=== PATIENT | female | born 1995 | race Caucasian/White ===

== ENCOUNTER 2017-12-31 10:03 | Emergency (ER) | payer MEDICAID, SELFPAY ==
[2017-12-31 10:04] VITALS: BP 129/77; PULSE 66; RESP 18; O2SAT 98; BMI 28.3; BMI 62.4
--- NOTE | 2017-12-31 10:06 | XR_ITS ---
XR chest 2V HISTORY: ITS.REASON: CHEST PAIN ORDERING PHYSICIAN: Mohan Hughes MD PATIENT AGE: 22 years COMPARISON: 06/20/2017 FINDINGS: The cardiomediastinal silhouette and pulmonary vascularity are within normal limits. The lungs are clear without infiltrates, suspicious nodules, or pleural effusions. No acute bony abnormalities. IMPRESSION: Negative chest. Previously noted cardiomegaly no longer apparent
--- NOTE | 2017-12-31 10:06 | CA_ITS ---
PROCEDURE: 2-D M-mode and color Doppler study INDICATIONS FOR THE TEST: Chest painx COPD Heart Murmur Tobacco Smoking Palpitations Fatigue Syncope Edema Hypertension Diabetes Mellitus Rheumatic Fever SOBxDOE Obesity Hyperlipidemia Family History HD Additional History Lupus, pericardial effusion Mild mitral valve prolapse of anterior leaflet, insignificant pericardial effusion PATIENT INFORMATION HEIGHT: 5'5'' WEIGHT: 170 GENDER: Female B/P: 129/77 2-D/M-MODE INTERPRETATION: 2-D MEASUREMENTS OBSERVED VALUES IN CMS Right Ventricular Dimension (RVDd) 2.7 Interventricular Septum (Thickness)(IVsd) 0.9 Left Ventricular Internal Dimensions(LVIDd) 4.8 Left Ventricular Posterior Wall (Thickness)(LVPWd) 0.9 Aortic Root 2.7 Aortic Cusp Separation 2.1 Left Atrial Dimensions (LAD) 3.3 2D 1. Left atrium is normal size, left ventricle is normal size, there is no concentric left ventricular hypertrophy, visually estimated ejection fraction 55% with no obvious regional wall motion abnormality. 2. The right atrium and right ventricle are normal size and contractility. 3. The aortic valve is structurally normal. 4. The mitral valve leaflets are mildly myxomatous, there is mild prolapse of the posterior mitral leaflet. 5. The tricuspid valve is structurally normal. Pulmonic valve is poorly visualized 6. Trivial pericardial effusion noted. DOPPLER INTERROGATION: Doppler interrogation of the aortic, mitral and tricuspid valvular presence of moderate mitral and mild tricuspid regurgitation, tricuspid and jet velocity insufficient for calculation of the right ventricular systolic pressure, diastolic parameters are within normal range. CONCLUSION: 1. Normal left ventricular size, preserved left ventricular systolic function, visually estimated ejection fraction 55% with no obvious regional wall motion abnormality, diastolic parameters are within normal range. 2. Abnormal mitral valve as described above associated moderate mitral regurgitation 3. Mild tricuspid regurgitation 4. No significant pericardial effusion noted.
[2017-12-31 10:15] LABS: Basophils % 0.2 % (0.1-2.0); Eosinophils # 0.1 K/mm3 (0.0-0.4); Eosinophils % 1.9 % (0.1-12.0); Hematocrit 35.1 % (37.0-47.0); Hemoglobin 11.4 g/dL (12.2-16.2); Lymphocytes # 1.2 K/mm3 (0.7-4.5); Lymphocytes % 19.7 K/mm3 (10-50); Mean Corpuscular HGB Conc 32.6 g/dL (31.8-35.4); Mean Corpuscular Hemoglobin 26.4 pg (27.0-31.2); Mean Corpuscular Volume 81.2 fl (81-99); Mean Platelet Volume 8.5 fl (7.4-10.4); Monocytes # 0.4 K/mm3 (0.1-1.0); Monocytes % 6.3 % (1.7-9.3); Neutrophils # 4.5 K/mm3 (1.8-7.8); Neutrophils % 71.9 % (37.0-80.0); Platelet Count 200 K/mm3 (142-424); Red Blood Count 4.32 M/mm3 (4.20-5.40); Red Cell Distribution Width 15.4 % (11.5-17.5); White Blood Count 6.3 K/mm3 (4.8-10.8)
[2017-12-31 10:43] LABS: Alanine Aminotransferase 23 U/L (12-78); Albumin Level 3.5 gm/dL (3.4-5.0); Albumin/Globulin Ratio 0.9 (1.1-1.8); Alkaline Phosphatase 110 U/L (46-116); Anion Gap 10.8 mEq/L (5-15); Aspartate Amino Transferase 24 U/L (15-37); Bilirubin,Total 0.4 mg/dL (0.2-1.0); Blood Urea Nitrogen 9 mg/dL (7-18); Calcium 8.4 mg/dL (8.5-10.1); Carbon Dioxide 28 mmol/L (21.0-32.0); Chloride 106 mmol/L (98-107); Creatine Kinase 50 U/L (26-192); Creatinine Clearance Estimated 167 mL/min (0-300); Creatinine,Serum 0.65 mg/dL (0.55-1.02); Estimated Glomerular Filt Rate 115 ml/min (>60); GFR (African American) 139 ML/MIN (>60); Glucose 95 mg/dL (74-106); Potassium 3.8 mmoL/L (3.5-5.1); Sodium 141 mmol/L (136-145); Total Protein,Serum 7.5 gm/dL (6.4-8.2); Troponin I < 0.02 ng/ml (0.00-0.06)
[2017-12-31 10:46] LABS: Creatine Kinase MB < 0.5 mg/ml (0.0-3.6)
--- NOTE | 2017-12-31 10:59 | HMH.EDCP ---
ED Disposition Clinical Impression: Chest pain Qualifiers: Chest pain type: other chest pain Qualified Code(s): R07.89 - Other chest pain Disposition: Home, Self-Care Condition on Discharge: Good Instructions: DI for Atypical Chest Pain Additional Instructions: Please continue your home medications, schedule follow-up appointment with Dr. lamine Hill (auto job estimator) within the next 3-5 days. Referrals: Lauri Hill MD [Staff Physician] - Time of Disposition: 10:59 - Critical Care Critical Care Time: No Attestation: On 12/31/17, the high probability of a clinically significant, sudden or life threatening deterioration of the following system(s) required my full and direct attention, intervention and personal management. The time I documented below is in addition to time spent performing reported procedures but includes the following listed in this critical care notation. Medical Decision Making - Medical Records Medical records reviewed: Yes: I reviewed the patient's medical records. Vital Signs: 12/31/17 10:04 12/31/17 11:08 Temperature 98.6 F Temperature Source Oral Pulse Rate 61 Pulse Rate [Right Radial] 66 Respiratory Rate 18 16 Blood Pressure 118/43 Blood Pressure [Right Arm] 129/77 Blood Pressure Mean [Right Arm] 94 Blood Pressure Source [Right Arm] Automatic Cuff Blood Pressure Position Sitting Blood Pressure Position [Right Arm] Sitting 02 Sat by Pulse Oximetry 98 Oxygen Delivery Method Room Air Room Air - Lab Data Lab results reviewed: Yes: I reviewed the patient's lab results. Lab Results 12/31/17 10:05: WBC 6.3, RBC 4.32, Hgb 11.4 L, Hct 35.1 L, MCV 81.2, MCH 26.4 L, MCHC 32.6, RDW 15.4, Plt Count 200, MPV 8.5, Neut % (Auto) 71.9, Lymph % (Auto) 19.7, Dawes % (Auto) 6.3, Eos % (Auto) 1.9, Baso % (Auto) 0.2, Neut # (Auto) 4.5, Lymph # (Auto) 1.2, Dawes # (Auto) 0.4, Eos # (Auto) 0.1, Baso # (Auto) 0.0 12/31/17 10:05: Sodium 141, Potassium 3.8, Chloride 106, Carbon Dioxide 28, Anion Gap 10.8, BUN 9, Creatinine 0.65, Estimated Creat Clear 167, Estimated GFR 115, Est GFR ( Amer) 139, Glucose 95, Calcium 8.4 L, Total Bilirubin 0.4, AST 24, ALT 23, Alkaline Phosphatase 110, Total Creatine Kinase 50, CK-MB (CK-2) < 0.5, CK-MB (CK-2) Rel Index 1.0, Troponin I < 0.02, Total Protein 7.5, Albumin 3.5, Globulin 4.0 H, Albumin/Globulin Ratio 0.9 L Result diagrams: 12/31/17 10:05 12/31/17 10:05 Orders (Tests/Meds): ORDERS Category Date Time Status ECHO (Adult) Request [CA Echo Req by /Alli] Stat Y 12/31/17 10:06 Ordered - Radiology Data #1 Image(s): Chest Image Reviewed: Yes I reviewed the patient's radiology results, Yes I reviewed the patient's radiology image, Yes I have reviewed radiologist's interpretation Ordering Physician: Mohna Hughes MD Date of Service: 12/31/17 Procedure(s): XR chest 2V Accession Number(s): [id number] cc: Kota Guerrero ~ XR chest 2V HISTORY: ITS.REASON: CHEST PAIN ORDERING PHYSICIAN: Mohan Hughes MD PATIENT AGE: 22 years COMPARISON: 06/20/2017 FINDINGS: The cardiomediastinal silhouette and pulmonary vascularity are within normal limits. The lungs are clear without infiltrates, suspicious nodules, or pleural effusions. No acute bony abnormalities. IMPRESSION: Negative chest. Previously noted cardiomegaly no longer apparent Dictated By: Kota Guerrero Signed By: <Electronically signed by Kota Guerrero in OV> 12/31/17 1232 - US Data US Images: Other (ECHO, 2D) ED US Reviewed: Yes: I have reviewed the patient's US results Findings Narrative: EF=65%, no pericardial effusion - Wesley Inquiry Pt receiving controlled substance: No - Reevaluation(s) Time: 10:45 Reevaluation #1: Upon reevaluation patient is medically stable, no acute distress. Instructed patient to follow-up with Dr. Elpidio Hill per discharge instructions. Offered patient an opportunity to ask and answ
[2017-12-31 11:08] VITALS: BP 118/43; PULSE 61; RESP 16; TEMP 37; O2SAT 98
== END 2017-12-31 11:09 | disposition home or self-care (01) ==
PROVIDERS: Emergency Provider Emergency Medicine
DX: R07.89 Other chest pain (principal); Z79.899 Other long term (current) drug therapy
CPT/HCPCS: 71046; 80053; 82550; 82553; 84484; 85025; 93005; 93041; 93306; 99283

== ENCOUNTER 2018-01-15 12:29 | Emergency (ER) | payer MEDICAID, SELFPAY ==
[2018-01-15 12:52] VITALS: BP 120/72; PULSE 72; RESP 20; TEMP 36.8; O2SAT 99; BMI 25.0
--- NOTE | 2018-01-15 13:31 | HMH.EDUTC ---
[facility] – [place] Disposition Clinical Impression: Urinary problem Disposition: Home, Self-Care Condition on Discharge: Good Instructions: DI for Urinary Tract Infection (UTI), Urinary Tract Infection Additional Instructions: If symptoms worsen return for retesting Follow up with doctor if symptoms worsen Return if needed Drink plenty of fluids To the ER if fever above 102 that is not easily controlled with medicaiton or any life threatening symptoms Time of Disposition: 13:53 Medical Decision Making - Medical Records Medical records reviewed: Yes: I reviewed the patient's medical records. Vital Signs: 01/15/18 12:52 Temperature 98.2 F Temperature Source Oral Pulse Rate [Right Brachial] 72 Respiratory Rate 20 Blood Pressure [Right Arm] 120/72 Blood Pressure Mean [Right Arm] 88 Blood Pressure Source [Right Arm] Automatic Cuff Blood Pressure Position [Right Arm] Sitting 02 Sat by Pulse Oximetry 99 Oxygen Delivery Method Room Air - Lab Data Lab results reviewed: Yes: I reviewed the patient's lab results. - Wesley Inquiry Pt receiving controlled substance: No Wesley was queried for this patient: No [facility] [place] HPI - General Stated complaint: possible uti Mode of Arrival: Ambulatory Source of Information: Patient Limitations: No Limitations Description of Symptoms (Recalled from Triage Doc. by RN): possible uti - burning and painful urination HEENT Symptoms (Recalled from RN notes): No Resp Symptoms (Recalled from RN notes): No Skin Symptoms (Recalled from RN notes): No MS Symptoms (Recalled from RN notes): No Functional Status (Recalled from RN notes): na - History of Present Illness Provider Complaint: Patient state that for the last couple of days she has had some mild burning when she urinates States that she was not sure if she may have a UTI or just not drinking enough water State that she did this before and they told her she needed to be drinking more water, denies fever, denies low back pain - Related Data Home Medications Medication Instructions Recorded Confirmed Hydroxychloroquine Sulfate 200 mg PO DAILY 12/31/17 12/31/17 [Plaquenil 200mg tablet] Mycophenolate Mofetil [Cellcept] 500 mg PO BID 12/31/17 12/31/17 Allergies Allergy/AdvReac Type Severity Reaction Status Date / Time No Known Allergies Allergy Verified 12/31/17 10:05 - Worker's Comp Is this a Worker's Comp case?: No Is this an [facility] Worker's Comp?: No Is this a [facility] Worker's Comp?: No [facility] History I have reviewed the patient's past medical history: Yes Medical History: Denies:: Cancer, Diabetes Mellitus Type 1, Diabetes Mellitus Type 2, MRSA Amputation: No Fractures: No - Social History Educational Level: Attended High School Smoking Status: Never smoker Alcohol Intake: never - Psychiatric History Expresses thoughts of harming self/others: None Suicide Plan Description: No Plan ROS Obtained: Yes All systems reviewed & no additional complaints - Constitutional Constitutional: Denies body ache, Denies chills, Denies fever(s) - Genitourinary Female Genitourinary: Reports other Comments: Patient state that she is having mild burning with urination at times Physical Exam - General General appearance: alert, in no apparent distress - Respiratory Respiratory exam: Present: normal lung sounds bilaterally. Absent: respiratory distress - Cardiovascular Cardiovascular exam: Present: regular rate, normal rhythm. Absent: JVD - Abdominal Exam Abdominal exam: Present: soft, normal bowel sounds. Absent: distention, tenderness, guarding - Back Exam Back exam: Present: normal inspection. Absent: tenderness - Neurological Exam Neurological exam: Present: alert, oriented X3 - Other Other exam information: MIld burning with urination, denies flank pain, denies fever, denies low back pain
[2018-01-15 13:57] VITALS: BP 120/72; PULSE 72; RESP 20; TEMP 36.8; O2SAT 99
[2018-01-15 14:54] LABS: Apearance,Urine Clear (Clear); Color,Urine Yellow (Yellow)
[2018-01-15 14:55] LABS: Bilirubin,Urine Negative (Negative); Blood, Urine Negative (Negative); Glucose,Urine (UA) Negative (Negative); Ketones,Urine Negative (Negative); Protein,Urine 2+ (Negative); Specific Gravity, Urine >= 1.030 (1.005-1.030); UTC Leukocyte Esterase,Urine Negative (Negative); UTC Nitrate,Urine Negative (Negative); Urobilinogen,Urine 0.2 EU/dl (0.2)
== END 2018-01-15 13:59 | disposition home or self-care (01) ==
PROVIDERS: Emergency Provider Nurse Practitioner
DX: R31.9 Hematuria, unspecified (principal)
CPT/HCPCS: 81003; 99202

== ENCOUNTER → 2018-04-13 11:32 | Outpatient (CLI) | payer MEDICAID, SELFPAY ==
--- NOTE | 2018-04-13 11:34 | NM_ITS ---
SPECT MYOCARDIAL PERFUSION SCAN, REST AND STRESS: EXERCISE STRESS: [facility] REVIEW QGS EF AND WALL MOTION EVALUATION: QPS - PERFUSION EVALUATION: HISTORY: Chest pain, SOB, Palpitations, Syncope, Fatigue, Family hx PROCEDURE: Rest imaging performed after administration of10.24 millicuries Tc MIBI. Dose administered at11:40 a.m., with imaging thereafter. Stress imaging was then performed following6 minutes of exercise stress. The patient achieved a heart [id number] with projected heart rate of158 . Resting BP129/78 with stress 140/80. At maximum exercise stress,31.5 millicuries Tc MIBI administered at1:30 p.m. with [id number] minutes thereafter. FINDINGS: Perfusion Evaluation: The single slice spect images as well as the [facility] bull's-eye data summary were reviewed. Wall Motion and Ejection Fraction Evaluation: Gated SPECT review and analysis used to evaluate these features. There is a 58 % left ventricular ejection fraction. There seems to be good wall motion Uniform myocardial activity both stress gated images calculated ejection fraction of 58% with normal wall motion IMPRESSION: No scintigraphic evidence of exercise-induced myocardial ischemia with normal ejection fraction normal wall motion
== END ==
PROVIDERS: PCP Urology; Visit Provider Internal Medicine
DX: R06.00 Dyspnea, unspecified (principal); R07.9 Chest pain, unspecified; R94.31 Abnormal electrocardiogram [ECG] [EKG]; I34.0 Nonrheumatic mitral (valve) insufficiency; L93.0 Discoid lupus erythematosus
CPT/HCPCS: 78452; 93017; 93306; A9502